=== PATIENT | female | born 1980 | race African-American/Black ===

== ENCOUNTER 2019-04-09 08:00 | Inpatient (IN) | payer OTHER ==
[2019-04-03 14:10] VITALS: BMI 36.3
[2019-04-09] MEDS ORDERED: TRANEXAMIC ACID 1000 MG/10 ML VIAL IVPUSH ONE (09:58)
[2019-04-09] MEDS ORDERED: VANCOMYCIN 1,000 MG in DEXTROSE 5%-WATER - 250 ML IVPB ONE (09:58)
[2019-04-09] MEDS ORDERED: CEFAZOLIN 2 GM in DEXTROSE 5%-WATER - 50 ML IVPB ONE (09:58)
[2019-04-09] MEDS ORDERED: ROPIVACAINE HCL 0.5% 30ML VIAL ONE (13:02)
[2019-04-09] MEDS ORDERED: EPINEPHrine/PF 1 MG/1 ML (1:1,000) AMPULE ONE (13:02)
[2019-04-09] MEDS ORDERED: MIDAZOLAM HCL 2 MG/2 ML SINGLE DOSE VIAL ONE ×3 (13:02→14:52)
[2019-04-09] MEDS ORDERED: BUPIVACAINE HCL/PF 0.5% (5MG/ML) 10 ML VIAL ONE (13:30)
[2019-04-09] MEDS ORDERED: PROPOFOL 20 ML ONE ×6 (13:53→17:53)
[2019-04-09] MEDS ORDERED: TRANEXAMIC ACID 1000 MG/10 ML VIAL ONE ×2 (14:38→18:05)
[2019-04-09] MEDS ORDERED: ceFAZolin SODIUM 1 GM VIAL ONE ×3 (14:38→18:09)
[2019-04-09] MEDS ORDERED: VANCOMYCIN 1,000 MG VIAL (RESTRICTED TO ID ONLY) ONE (14:38)
[2019-04-09] MEDS ORDERED: ONDANSETRON 4 MG/2 ML VIAL ONE ×2 (14:38→15:57)
[2019-04-09] MEDS ORDERED: KETOROLAC TROMETHAMINE 30 MG/1 ML VIAL ONE ×2 (15:57→15:58)
[2019-04-09] MEDS ORDERED: DEXAMETHASONE SOD PHOSPHATE 4 MG/1 ML VIAL ONE (15:57)
[2019-04-09] MEDS ORDERED: ONDANSETRON 4 MG/2 ML VIAL IVPUSH PRN ×3 (17:36→21:27)
[2019-04-09] MEDS ORDERED: oxyCODONE HCL 5 MG TABLET PO PRN (17:36)
[2019-04-09] MEDS ORDERED: ACETAMINOPHEN 1000 MG/100 ML VIAL (NON FORMULARY) IVPB ONE (17:36)
[2019-04-09] MEDS ORDERED: LACTATED RINGERS SOLUTION 1,000 ML IV SCH ×2 (17:45→18:30)
[2019-04-09] MEDS ORDERED: ACETAMINOPHEN INJECTION 100 ML IVPB ONE (18:06)
[2019-04-09] MEDS ORDERED: MAG HYDROX/AL HYDROX/SIMETH 30 ML UNIT-DOSE CUP PO PRN (18:16)
[2019-04-09] MEDS ORDERED: MAGNESIUM HYDROX 2400MG/30ML ORAL SUSPENSION 30 ML CUP PO PRN (18:16)
[2019-04-09] MEDS: oxyCODONE HCL 5 MG TABLET PO PRN (20:46)
--- NOTE | 2019-04-09 20:54 | CONSULT ---
Consult Referred by:: Dr. Reza Ahumada Reason for Consultation:: Post OP medical management - History of Present Illness Chief Complaint: S/P Left Hip THR History of Present Illness: 39 yrs old morbid obesity s/p Gastric Sleeve surgery in 2013 F H/O Hypothyroidism, AMY, GERD , Left Hip OA underwent Left THR under N Block, Hospitalist consult is called for post op management, patient denies any chest pain , SOB, Palpitation, no c/o nausea, vomiting or abdominal pain, c/o left hip pain able to pass flatus. - History Source History Provided By: Patient - Past Medical History ...LMP: 03/05/19 ...: No Heme/Onc: Yes: Anemia Endocrine: Yes: Hyperthyroidism - Alcohol/Substance Use Hx Alcohol Use: No - Smoking History Smoking history: Former smoker Have you smoked in the past 12 months: Yes Aproximately how many cigarettes per day: 11 If you are a former smoker, when did you quit?: 03/31/19 Home Medications - Allergies Allergies/Adverse Reactions: Allergies Allergy/AdvReac Type Severity Reaction Status Date / Time ciprofloxacin Allergy Severe HEART Verified 04/03/19 13:52 RACES AND CAN'T BREATH naproxen Allergy Severe SEVERE Verified 04/03/19 13:53 DIZZY SPELLS AND DIARRHEA - Home Medications Home Medications: Ambulatory Orders Ferrous Sulfate [Iron] 325 mg PO DAILY 04/03/19 Folic Acid 1 mg PO DAILY 04/03/19 Hydrocodone/Acetaminophen [Hydrocodon-Acetaminoph 7.5-325] 1 each PO BID Levothyroxine [Synthroid -] 150 mcg PO HS 04/03/19 Omeprazole 20 mg PO BID 04/03/19 Family Disease History - Family Disease History Family History: Unremarkable Review of Systems - Review of Systems Constitutional: denies: Chills, Diaphoresis, Fever, Lethargy, Loss of Appetite Eyes: denies: Blind Spots, Blurred Vision, Double Vision HENT: denies: Difficult Swallowing, Ear Discharge, Ear Pain, Epistaxis Neck: denies: Decreased ROM, Lumps, Pain on Movement, Stiffness Cardiovascular: denies: Chest Pain, Edema, Palpitations, Shortness of Breath Respiratory: denies: Cough, Exercise Intolerance, Hemoptysis, Orthopnea Gastrointestinal: denies: Abdominal Pain, Bloating, Constipation, Diarrhea Genitourinary: denies: Burning, Discharge, Incontinence Musculoskeletal: reports: Back Pain Neurological: denies: Change in LOC, Change in Speech, Confusion, Dizziness Pain Intensity: 8 Physical Exam Vital Signs: Vital Signs Temperature 98.1 F 04/09/19 20:10 Pulse Rate 64 04/09/19 20:10 Respiratory Rate 16 04/09/19 20:10 Blood Pressure 105/64 04/09/19 20:10 O2 Sat by Pulse Oximetry (%) 100 04/09/19 20:00 Young F not in distress c/o Left Hip Pain HEENT: Mm moist, no anemia, PERRLA EOMI NECK: No JVd No Bruit CHEST: CTA B/L CVS: s1S2 R no m/g/r ABD: No distention, non tender BS + EXT: Left LE s/p THR, distal pulses and sensation intact [employer] SECOND OPERATOR: AOX3 non focal Labs: PRE OP Lab reviewed Hb 10.3 Plat 290 k 03/19/19 Imaging - Results EKG: Report Reviewed ([id number],[id number], non specific ST T chnages 03/17/19) Problem List - Problems (1) History of arthroplasty of left hip Assessment/Plan: H/O sever OA , pain control, post Op management as per Ortho team. Code(s): Z98.890 - OTHER SPECIFIED POSTPROCEDURAL STATES (2) Hypothyroid Assessment/Plan: Cont Home dose of Levothyroidism Code(s): E03.9 - HYPOTHYROIDISM, UNSPECIFIED (3) AMY (iron deficiency anemia) Assessment/Plan: Cont PO Iron Code(s): D50.9 - IRON DEFICIENCY ANEMIA, UNSPECIFIED (4) Obesity Assessment/Plan: Morbid obesity s/p Gastric sleeve surgery in 2013 cont nutrition evaluation as out patient. Code(s): E66.9 - OBESITY, UNSPECIFIED Visit type - Emergency Visit Emergency Visit: No - New Patient This patient is new to me today: Yes Date on this admission: 04/09/19 - Critical Care Critical Care patient: No
[2019-04-09] MEDS ORDERED: ACETAMINOPHEN 325 MG TABLET (FP) PO PRN (21:02)
[2019-04-09] MEDS ORDERED: HYDROmorphone HCL CARPU-JECT 1 MG/1 ML DISP.SYRIN IVPB PRN (21:27)
[2019-04-09] MEDS ORDERED: KETOROLAC TROMETHAMINE 30 MG/1 ML VIAL IVPUSH ONE (21:51)
[2019-04-09] MEDS ORDERED: ASPIRIN 325 MG TABLET PO SCH (22:00)
[2019-04-09] MEDS ORDERED: PATIENT'S OWN MEDICATION (NON-FORMULARY) (Omeprazole 20 MG) PO SCH (22:00)
--- NOTE | 2019-04-09 22:02 | PN ---
Progress Note (short form) - Note Progress Note: 39F s/p LEFT total hip replacement POD #0. -Pain control: per anaesthesia team. -DVT PPx: -Chemical: ASA 81mg PO BID x 6 weeks. -Mechanical: DEO's, SCD's. -Incentive spirometry q15 min. -PT/OT/Rehab, OOB. -WBAT LLE. -Post-op Ancef x 2 doses. -f/u post-op TOV: 8 hours max. -f/u AM labs. -Diet as tolerated. -Care per medical hospitalist team. -Discharge planning: f/u [facility] [place] [facility] 04/17/2019; call for appointment . -Will follow. Brandyn Cobb MD (Orthopaedic Surgery).
--- NOTE | 2019-04-09 22:04 | OP ---
Operative Note - Note: Operative Date: 04/09/19 Pre-Operative Diagnosis: Left hip dysplasia (previous SCFE) and osteoarthritis Operation: Left total hip replacement. Removal of hardware left hip Implants: DePuy. Cup - [place]. Stem - SROM Post-Operative Diagnosis: Same as Pre-op Surgeon: Brandyn Cobb Guest Service Representative: Peter Cobb Anesthesiologist/HORSE FARM MANAGER: Hasmukh Tyler Anesthesia: Spinal Specimens Removed: Left femoral head. Left hip hardware Estimated Blood Loss (mls): 500 Drains & Tubes with Location: 1 x deep HemoVac Fluid Volume Replaced (mls): 1,500 (Crystalloid) Operative Report Dictated: Yes
[2019-04-09] MEDS: oxyCODONE HCL 10 MG SUSTAINED ACTING TABLET PO SCH (22:40)
[2019-04-09] MEDS: SENNOSIDES/DOCUSATE COMBO (SENNA PLUS) TABLET (UD) PO SCH (22:40)
[2019-04-09] MEDS: ASPIRIN 81 MG CHEWABLE TABLETS PO SCH (22:40)
[2019-04-10] MEDS: oxyCODONE HCL 5 MG TABLET PO PRN ×7 (00:23→20:34)
[2019-04-10] MEDS: CEFAZOLIN 2 GM/D5W 2 GM/50 ML ML IVPB SCH ×2 (01:46→10:15)
[2019-04-10] MEDS: LEVOTHYROXINE NA 150 MCG TABLET PO SCH (06:25)
--- NOTE | 2019-04-10 07:45 | OP ---
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 In fact, feet pointed posteriorly because of this deformity. All surgeons she saw declined offering her any help. OPERATION PERFORMED: 1. Left cementless total hip arthroplasty (DePuy S-ROM). 2. Open tenotomy of obturator internus, obturator externus, gemellus superior, gemellus inferior, and piriformis muscles, that is, 5 tendons released. 3. Appropriate capsulotomy and capsulorrhaphy. 4. Complex wound closure of 30 cm. OVERALL COMMENT: Extremely difficult and complex operation. ANESTHESIA: Conscious sedation with spinal anesthesia. ANTIBIOTICS GIVEN: Kefzol and vancomycin preoperatively. Intraoperative at the time of seating of the femoral component, 1 g of Kefzol given. At the time of closure, 1 g of Kefzol given. BLOOD LOSS: Approximately 500 mL OPERATION DETAILS: In the supine position, the patient was examined, found the following: At 90 degrees of flexion, the tibia extremely rotated at 45 degrees and was fixed in this position. In the supine position, the limb lay with the foot parallel to the floor and flexing the hip slightly, the foot faced backwards. The preoperative x-rays revealed no slipped capital epiphysis. After the appropriate draping with Betadine scrub solution, wiped with alcohol, and DuraPrep applied, and after having sealed the wound with the appropriate dressing devices, an incision was made at the center of the greater trochanter approximately 5 cm proximal to the trochanter and 25 cm distal to the greater trochanter. Charnley retractors were placed in the subfascial plane to expose the hip abductor mechanism. The gluteus medius muscle was vertical in the supine position, which was grossly abnormal. Using an anterior bias direct lateral approach, the anterior soft tissues of the femoral neck were dissected off the steel screw of the old slipped capital epiphysis, and attempts at removing the screw impossible. It was cold-welded into position. A superolateral inferomedial capsulotomy performed. Radial incision was made in the capsule, brought about an exposure of the entire femoral and neck and head. It was noted clearly that the femoral neck was retroverted approximately 15 to 20 degrees, and gross osteoarthritis of the head articulation with the acetabulum was noted. With an induction external rotation maneuver with great difficulty, the femoral head was dislocated. The transfemoral neck cut was made at the level just proximal to the lesser trochanter. The anterior, posterior, inferior retractors were seated and Charnley pins were placed superolaterally in the ileum to hold the soft tissues out of harms way. The labrum was resected. The reaming was to size 48 and size 50. [employer] multi-hole cup inserted to ultimately receive a polyethylene for a 28-mm articulation, and a 10-degree posterior lip liner. This was a cup that also had a +4 mm lateral offset. The femur was exposed. The rotating awl was inserted into the tip of the greater trochanter. The T-handle Charnley was placed into medullary canal with no difficulty. Reaming for an S-ROM stem was then up to size 15.5 anticipating a size 15-mm stem. Trialing of the components posed difficulty of this operation in terms of achieving leg length. The neck shaft angle was 90 degrees, and in order to achieve and seat a hip at 135-degree neck shaft angle, that meant using the concepts of [place] of 1 degree equals 1 mm, 4.5 cm of lengthening would be necessary. Repeat trialings after the neck cuts and seating of the S-ROM stem which was a combination of reaming as well as the proximal milling of the bone bed resulted in the need for doing this on sequential multiple times because of the difficulty of assessing the appropriate tension of tissues and leg length as well as relocation of the implant into the socket. Eventually, a liberal amount of bone was resected. The appropriate sizing was a size 15 S-ROM stem with a D small SPA, these all having been sized and seated with the appropriate cutting devices of the S-ROM stem, that is , the proximal reamer as was the appropriate proximal calcar milling device. The external rotators were all released in an open fashion. This was done with no harm to the sciatic nerve. Each tendon was identified and transected to achieve realignment of the axis of the femur away from external rotation. The size +4 ceramic femoral head was applied to the trunnion. The hip was seated into position and found to be completely stable in flexion adduction internal rotation, as well as extension external rotation. Leg length appeared equal. The wounds were thoroughly lavaged. Once this had been performed, the appropriate closure was as follows. Hip adductor fascia with 1 Vicryl, fascia 1 Vicryl, subcutaneous a layer with 1-0 Vicryl and the other layer with 2-0 Vicryl, and then, skin with Monocryl and Steri-Strips. This was a complex wound closure of approximately 25 cm. Drainage 0.125-inch Hemovac into the deep subfascial plane. OVERALL COMMENT: This proved to be an extremely difficult procedure in order to achieve correct axial alignment, which was successfully done by the end, and leg length remained equal, and after anesthesia was reversed, sciatic nerve was fully intact. Postoperative x-rays revealed an excellent reconstruction of the entire components. The hip is stable. A hip abduction pillow was placed. An appropriate hip brace will be applied, and a derotation boot to prevent the limb falling to external rotation particularly during sleep to maintain axial alignment of this hip. Overall comment was an extremely difficult operation. No other complications noted. MD LI Amaro/[id number] MTDD
[2019-04-10] MEDS: diazePAM 2 MG TABLET PO PRN ×2 (08:02→16:20)
[2019-04-10 08:35] LABS: BASO % 0.2 % (0-2.0); EOS % 0.1 % (0-4.5); HEMATOCRIT 24.9 % (32.4-45.2); HEMOGLOBIN 7.8 GM/dl (10.7-15.3); LYMPH % 12.5 % (8-40); MCH 23.4 pg (25.7-33.7); MCHC 31.5 g/dl (32.0-36.0); MEAN CELL VOLUME 74.1 fl (80-96); MEAN PLT VOLUME 9.1 fl (7.5-11.1); MONO % 9.1 % (3.8-10.2); NEUT % 78.1 % (42.8-82.8); PLATELET COUNT 289 K/MM3 (134-434); RBC 3.36 M/mm3 (3.60-5.2); RDW 26.7 % (11.6-15.6); WHITE BLOOD COUNT 12.5 K/mm3 (4.0-10.8)
[2019-04-10 08:45] LABS: CALCIUM 8.3 mg/dl (8.5-10); CREATININE 0.9 mg/dl (0.55-1.3); MAGNESIUM 1.8 mg/dL (1.8-2.4); POTASSIUM 4.4 mmol/L (3.5-5.1)
[2019-04-10 08:52] LABS: ADD RBC MORPHOLOGY YES
[2019-04-10] MEDS: FERROUS SO4 325 MG TABLET (FP) PO SCH (09:24)
[2019-04-10] MEDS: ASPIRIN 81 MG CHEWABLE TABLETS PO SCH ×2 (09:24→21:50)
[2019-04-10] MEDS: FOLIC ACID 1 MG TABLET (FP) PO SCH (09:25)
[2019-04-10] MEDS: oxyCODONE HCL 10 MG SUSTAINED ACTING TABLET PO SCH ×2 (09:25→21:50)
[2019-04-10] MEDS: SENNOSIDES/DOCUSATE COMBO (SENNA PLUS) TABLET (UD) PO SCH ×2 (09:26→21:50)
--- NOTE | 2019-04-10 09:58 | PN ---
Progress Note (short form) - Note Progress Note: POD#1 Pt states that she is having pain in her left hip. OOB to chair this am. Slight nausea without emesis. No CP or SOB. Voiding without difficulty. Vital Signs Period Temp Pulse Resp BP Sys/Franks Pulse Ox Last 24 Hr 98.1 F-98.4 F 64-86 16-18 90-111/44-85 100-100 GEN: A&0x3 CV: RRR Lungs: CTA b/l Left hip: dressing c/d/i, area soft. REILLY dark brown blood-265 ml LE: +2 dp pulses, calves soft and without edema. PETERSON/SCDS in place. Abductor pillow in place. CBC, BMP 05/16/19 07:10 05/16/19 07:10 A/p: 39 yo female s/p L hip replacement and removal of hardware, POD#1 OOB to chair and ambulate with PT/posterior hip precautions Pain management, added toradol IV and valium as needed Regular diet as tolerated DVT ppx with ambulation, peterson/scds, aspirin 81 mg bid D/w Dr. Cobb
[2019-04-10] MEDS ORDERED: PATIENT'S OWN MEDICATION (NON-FORMULARY) (Ferrous Sulfate [Iron] 325 MG) PO SCH (10:00)
[2019-04-10] MEDS ORDERED: PANTOPRAZOLE 40 MG TABLET (FP) PO SCH (10:00)
[2019-04-10 10:04] LABS: ANISOCYTOSIS 2+; OVALOCYTE 2+
[2019-04-10 10:05] LABS: PLATELET ESTIMATE SLT INCREASE
[2019-04-10] MEDS: ACETAMINOPHEN 325 MG TABLET (FP) PO SCH ×2 (13:10→20:35)
[2019-04-10] MEDS: KETOROLAC TROMETHAMINE 30 MG/1 ML VIAL IVPUSH PRN ×2 (15:10→21:51)
--- NOTE | 2019-04-10 16:44 | PN ---
Progress Note (short form) - Note Progress Note: 39F POD1 s/p L THR under spinal anesthetic with peripheral nerve block. Pt states that pain is well controlled and reports no anesthetic complications. AVSS. Continue current regimen.
[2019-04-10] MEDS ORDERED: SUCRALFATE 1 GM TABLET (FP) PO STA (17:25)
[2019-04-10] MEDS ORDERED: oxyCODONE HCL 5 MG TABLET PO PRN (17:27)
--- NOTE | 2019-04-10 17:29 | PN ---
Physical Exam: SUBJECTIVE: Patient seen and examined. Feeling tired. Feels she might be taking too much pain medication. OBJECTIVE: Vital Signs Period Temp Pulse Resp BP Sys/Franks Pulse Ox Last 24 Hr 98.1 F-98.4 F 64-86 16-18 90-111/44-85 97-100 GENERAL: The patient is awake, alert, and fully oriented, in no acute distress. Nodding off to sleep while talking. LUNGS: Breath sounds equal, clear to auscultation bilaterally, no wheezes, no crackles, no accessory muscle use. HEART: Regular rate and rhythm, S1, S2 without murmur, rub or gallop. ABDOMEN: Soft, nontender, nondistended LLE: Surgical dressing c/d/i, no surrounding edema, erythema, fluctuance; SCDs NEUROLOGICAL: Cranial nerves II through XII grossly intact. Normal speech, gait not observed. Laboratory Results - last 24 hr 04/09/19 04/10/19 04/10/19 13:15 07:10 07:10 WBC 12.5 H RBC 3.36 L Hgb 7.8 L Hct 24.9 L MCV 74.1 L MCH 23.4 L MCHC 31.5 L RDW 26.7 H Plt Count 289 MPV 9.1 Absolute Neuts (auto) 9.8 Neutrophils % 78.1 Lymphocytes % 12.5 Monocytes % 9.1 Eosinophils % 0.1 Basophils % 0.2 Hypochromia 1+ Platelet Estimate Slt increase Poikilocytosis 2+ Anisocytosis 2+ Ovalocytes 2+ Morphology Comment 1+ Sodium 136 Potassium 4.4 Chloride 105 Carbon Dioxide 23 Anion Gap 8 BUN 11 Creatinine 0.9 Est GFR (CKD-EPI)AfAm 92.70 Est GFR (CKD-EPI)NonAf 79.98 Random Glucose 139 H Calcium 8.3 L Magnesium 1.8 HIV 1&2 Antibody Screen Negative HIV P24 Antigen Negative Active Medications Generic Name Dose Route Start Last Admin Trade Name Freq PRN Reason Stop Dose Admin Acetaminophen 650 mg 04/10/19 13:00 04/10/19 13:10 Tylenol - PO 650 mg Q6H MAYLIN Administration Al Hydroxide/Mg Hydroxide 30 ml 04/09/19 18:16 Mylanta Oral Suspension - PO Q4H PRN DYSPEPSIA Aspirin 81 mg 04/09/19 22:00 04/10/19 09:24 Asa - PO 81 mg BID MAYLIN Administration Diazepam 2 mg 04/10/19 07:24 04/10/19 16:20 Valium - PO 2 mg Q8H PRN Administration MUSCLE SPASMS Ferrous Sulfate 325 mg 04/10/19 10:00 04/10/19 09:24 Feosol - PO 325 mg DAILY MAYLIN Administration Folic Acid 1 mg 04/10/19 10:00 04/10/19 09:25 Folic Acid - PO 1 mg DAILY MAYLIN Administration Ketorolac Tromethamine 30 mg 04/10/19 08:26 04/10/19 15:10 Toradol Injection - IVPUSH 30 mg Q8H-IV PRN Administration PAIN LEVEL 1-5 Levothyroxine Sodium 150 mcg 04/10/19 07:00 04/10/19 06:25 Synthroid - PO 150 mcg ACBK [facility] Administration Magnesium Hydroxide 30 ml 04/09/19 18:16 Milk Of Magnesia - PO PRN PRN CONSTIPATION Non-Formulary Medication 1 each 04/09/19 22:00 Hydrocodone/Acetaminophen [Hydrocodone-Acetamin 7.5-325] PO BID [facility] Ondansetron HCl 4 mg 04/09/19 18:16 Zofran Injection IVPUSH Q6H PRN NAUSEA Oxycodone HCl 10 mg 04/09/19 22:00 04/10/19 09:25 Oxycontin - PO 04/12/19 17:37 10 mg BID MAYLIN Administration Oxycodone HCl 5 mg 04/10/19 17:27 Roxicodone - PO Q6H PRN PAIN LEVEL 1-5 Oxycodone HCl 10 mg 04/10/19 17:28 Roxicodone - PO Q6H PRN PAIN LEVEL 6-10 Pantoprazole Sodium 20 mg 04/11/19 10:00 Protonix - PO BID [facility] Senna/Docusate Sodium 1 tablet 04/09/19 22:00 04/10/19 09:26 Pericolace - PO 1 tablet BID [facility] Administration Sucralfate 1 gm 04/10/19 17:25 Carafate - PO 04/10/19 17:26 ONCE STA ASSESSMENT/PLAN 39 year-old female with a PMH significant for hypothyroidism, obesity s/p gastric sleeve surgery, iron-deficiency anemia, GERD, left hip dysplasia and OA s/p left total hip replacement on 04/09/19. s/p Left total hip replacement and removal of hardware --POD #1 --perioperative antibiotics per surgery --pain management per surgery; changed dosing from q3h to q6h to avoid oversedation --ASA 81mg BID --protonix --bowel regimen --incentive spirometry --Hemovac drain, monitor output Acute blood loss anemia --Hgb 7.4, pre op 10.3; transfuse 2U PRBC Hypothyroidism --continue levothyroxine GERD --continue protonix FEN Fluids: PO intake adequate Electrolytes: replete as indicated Nutrition: regular diet DVT prophylaxis: OOB, ambulation, SCDs, TEDs, ASA 81mg BID Physical therapy Dispo: continues to require inpatient care. Full code. Visit type - Emergency Visit Emergency Visit: No - New Patient This patient is new to me today: Yes Date on this admission: 04/11/19 - Critical Care Critical Care patient: No
[2019-04-10 18:16] LABS: HEMATOCRIT 23.4 % (32.4-45.2); HEMOGLOBIN 7.4 GM/dl (10.7-15.3); MCH 23.6 pg (25.7-33.7); MCHC 31.5 g/dl (32.0-36.0); MEAN CELL VOLUME 74.9 fl (80-96); MEAN PLT VOLUME 8.5 fl (7.5-11.1); PLATELET COUNT 235 K/MM3 (134-434); RBC 3.12 M/mm3 (3.60-5.2); RDW 26.8 % (11.6-15.6)
[2019-04-10 18:19] LABS: WHITE BLOOD COUNT 10.9 K/mm3 (4.0-10.8)
[2019-04-10] MEDS ORDERED: FUROSEMIDE 40 MG/4 ML INJECTABLE VIAL IVPUSH ONE (23:00)
[2019-04-11] MEDS: diazePAM 2 MG TABLET PO PRN ×2 (02:40→14:29)
[2019-04-11] MEDS: ACETAMINOPHEN 325 MG TABLET (FP) PO SCH ×4 (02:41→18:13)
[2019-04-11] MEDS ORDERED: FUROSEMIDE 40 MG/4 ML INJECTABLE VIAL ONE (05:54)
[2019-04-11] MEDS: LEVOTHYROXINE NA 150 MCG TABLET PO SCH (06:01)
[2019-04-11] MEDS: oxyCODONE HCL 5 MG TABLET PO PRN ×2 (08:31→14:28)
--- NOTE | 2019-04-11 09:19 | PN ---
Progress Note (short form) - Note Progress Note: POD#2 PT received 1 unit PRBC yesterday and another to be given this am. Sight dizziness with ambulation. No CP or SOB. Vital Signs Period Temp Pulse Resp BP Sys/Franks Pulse Ox Last 24 Hr 98.2 F-98.8 F 72-96 16-18 100-113/47-54 97-100 Hemovac: 265 since yesterday- blood tinged GEN: A&0x3, NAD, resting in bed CV: RRR Lungs: CTA b/l Left hip: dressing c/d/I. Soft to palpation. LE: no calf tenderness or swelling noted b/l CBC, BMP 05/16/19 17:59 05/16/19 07:10 A/P: 39 yo female s/p Left hip hardware removal and hip replacement, POD#2. Acute blood lose anemia requiring PRBC transfusion Pt receiving PRBC this am, continue folic acid and Iron Diet as tolerated OOB and ambulate with PT, stair training this am. D/w PT, pt has stairs to her appartment Will continue her drain for now, the amount is decreasing D/w DR. Cobb discharge pending PT reassessment and drain outpt/H&H
[2019-04-11] MEDS: SENNOSIDES/DOCUSATE COMBO (SENNA PLUS) TABLET (UD) PO SCH ×2 (09:37→21:45)
[2019-04-11] MEDS: ASPIRIN 81 MG CHEWABLE TABLETS PO SCH ×2 (09:37→21:45)
[2019-04-11] MEDS: FERROUS SO4 325 MG TABLET (FP) PO SCH (09:37)
[2019-04-11] MEDS: oxyCODONE HCL 10 MG SUSTAINED ACTING TABLET PO SCH ×2 (09:37→21:46)
[2019-04-11] MEDS: PANTOPRAZOLE 20 MG TABLET (FP) PO SCH ×2 (09:38→21:45)
[2019-04-11] MEDS: FOLIC ACID 1 MG TABLET (FP) PO SCH (09:38)
[2019-04-11 12:02] LABS: HEMATOCRIT 28.7 % (32.4-45.2); HEMOGLOBIN 9.1 GM/dl (10.7-15.3); MCH 24.5 pg (25.7-33.7); MCHC 31.8 g/dl (32.0-36.0); MEAN PLT VOLUME 8.3 fl (7.5-11.1); PLATELET COUNT 232 K/MM3 (134-434); RBC 3.72 M/mm3 (3.60-5.2); WHITE BLOOD COUNT 11.1 K/mm3 (4.0-10.8)
--- NOTE | 2019-04-11 17:44 | PN ---
Physical Exam: SUBJECTIVE: Patient seen and examined oob to chair. Pain is well-managed. Less fatigued. Participating in PT. OBJECTIVE: Vital Signs Period Temp Pulse Resp BP Sys/Franks Pulse Ox Last 24 Hr 98.2 F-99.2 F 72-96 18-18 108-120/50-60 98-99 GENERAL: The patient is awake, alert, and fully oriented, in no acute distress. LUNGS: Breath sounds equal, clear to auscultation bilaterally, no wheezes, no crackles, no accessory muscle use. HEART: Regular rate and rhythm, S1, S2 without murmur, rub or gallop. ABDOMEN: Soft, nontender, nondistended LLE: Surgical dressing c/d/i, no surrounding edema, erythema, fluctuance; SCDs NEUROLOGICAL: Cranial nerves II through XII grossly intact. Normal speech, gait not observed. Laboratory Results - last 24 hr 04/10/19 04/10/19 04/10/19 17:59 21:15 21:15 WBC 10.9 H RBC 3.12 L Hgb 7.4 L Hct 23.4 L MCV 74.9 L MCH 23.6 L MCHC 31.5 L RDW 26.8 H Plt Count 235 MPV 8.5 Blood Type O POSITIVE O POSITIVE Antibody Screen Positive Antibody Identification Anti-e Antigen Identification E Antigen - NEGATIVE Crossmatch See Detail 04/11/19 04/11/19 00:11 12:00 WBC 11.1 H RBC 3.72 Hgb 9.1 L Hct 28.7 L D MCV 77.0 L MCH 24.5 L MCHC 31.8 L RDW 24.0 H D Plt Count 232 MPV 8.3 Blood Type Antibody Screen Antibody Identification Antigen Identification c Antigen - POSITIVE Crossmatch Active Medications Generic Name Dose Route Start Last Admin Trade Name Freq PRN Reason Stop Dose Admin Acetaminophen 650 mg 04/10/19 13:00 04/11/19 12:20 Tylenol - PO 650 mg Q6H MAYLIN Administration Al Hydroxide/Mg Hydroxide 30 ml 04/09/19 18:16 Mylanta Oral Suspension - PO Q4H PRN DYSPEPSIA Aspirin 81 mg 04/09/19 22:00 04/11/19 09:37 Asa - PO 81 mg BID MAYLIN Administration Diazepam 2 mg 04/10/19 07:24 04/11/19 14:29 Valium - PO 2 mg Q8H PRN Administration MUSCLE SPASMS Ferrous Sulfate 325 mg 04/10/19 10:00 04/11/19 09:37 Feosol - PO 325 mg DAILY MAYLIN Administration Folic Acid 1 mg 04/10/19 10:00 04/11/19 09:38 Folic Acid - PO 1 mg DAILY MAYLIN Administration Ketorolac Tromethamine 30 mg 04/10/19 08:26 04/10/19 21:51 Toradol Injection - IVPUSH 30 mg Q8H-IV PRN Administration PAIN LEVEL 1-5 Levothyroxine Sodium 150 mcg 04/10/19 07:00 04/11/19 06:01 Synthroid - PO 150 mcg ACBK MAYLIN Administration Magnesium Hydroxide 30 ml 04/09/19 18:16 Milk Of Magnesia - PO PRN PRN CONSTIPATION Non-Formulary Medication 1 each 04/09/19 22:00 Hydrocodone/Acetaminophen [Hydrocodone-Acetamin 7.5-325] PO BID [facility] Ondansetron HCl 4 mg 04/09/19 18:16 Zofran Injection IVPUSH Q6H PRN NAUSEA Oxycodone HCl 10 mg 04/09/19 22:00 04/11/19 09:37 Oxycontin - PO 04/12/19 17:37 10 mg BID MAYLIN Administration Oxycodone HCl 5 mg 04/10/19 17:27 Roxicodone - PO Q6H PRN PAIN LEVEL 1-5 Oxycodone HCl 10 mg 04/10/19 17:28 04/11/19 14:28 Roxicodone - PO 10 mg Q6H PRN Administration PAIN LEVEL 6-10 Pantoprazole Sodium 20 mg 04/11/19 10:00 04/11/19 09:38 Protonix - PO 20 mg BID [facility] Administration Senna/Docusate Sodium 1 tablet 04/09/19 22:00 04/11/19 09:37 Pericolace - PO 1 tablet BID [facility] Administration ASSESSMENT/PLAN: 39 year-old female with a PMH significant for hypothyroidism, obesity s/p gastric sleeve surgery, iron-deficiency anemia, GERD, left hip dysplasia and OA s/p left total hip replacement on 04/09/19. s/p Left total hip replacement and removal of hardware --POD #2 --perioperative antibiotics per surgery --pain management per surgery; changed dosing from q3h to q6h to avoid oversedation --ASA 81mg BID --protonix --bowel regimen --incentive spirometry --Hemovac drain, monitor output Acute blood loss anemia --transfused 2U PRBC, Hgb improved 7.4-->9.1 --hemodynamically stable Hypothyroidism --continue levothyroxine GERD --continue protonix FEN Fluids: PO intake adequate Electrolytes: replete as indicated Nutrition: regular diet DVT prophylaxis: OOB, ambulation, SCDs, TEDs, ASA 81mg BID Physical therapy Dispo: continues to require inpatient care. Full code. Visit type - Emergency Visit Emergency Visit: No - New Patient This patient is new to me today: No - Critical Care Critical Care patient: No
[2019-04-11] MEDS: KETOROLAC TROMETHAMINE 30 MG/1 ML VIAL IVPUSH PRN (18:12)
[2019-04-12] MEDS: diazePAM 2 MG TABLET PO PRN ×3 (01:00→19:35)
[2019-04-12] MEDS: ACETAMINOPHEN 325 MG TABLET (FP) PO SCH ×4 (02:44→19:34)
[2019-04-12] MEDS: oxyCODONE HCL 5 MG TABLET PO PRN ×2 (04:05→12:58)
[2019-04-12] MEDS: LEVOTHYROXINE NA 150 MCG TABLET PO SCH (06:14)
--- NOTE | 2019-04-12 09:38 | PN ---
Progress Note (short form) - Note Progress Note: POD#3 Doing well C/O incisional pain. Vitals and Bloods all stable HIP Bandage dry No NVD Alignment well maintained No signs of DVT ASSESS Doing well PLAN D/c tomorrow PT [employer] FWBAT Hip precautions see in office 10days
[2019-04-12] MEDS: oxyCODONE HCL 10 MG SUSTAINED ACTING TABLET PO SCH (10:54)
[2019-04-12] MEDS: SENNOSIDES/DOCUSATE COMBO (SENNA PLUS) TABLET (UD) PO SCH ×2 (10:54→21:51)
[2019-04-12] MEDS: ASPIRIN 81 MG CHEWABLE TABLETS PO SCH ×2 (10:54→21:51)
[2019-04-12] MEDS: FOLIC ACID 1 MG TABLET (FP) PO SCH (10:54)
[2019-04-12] MEDS: FERROUS SO4 325 MG TABLET (FP) PO SCH (10:54)
[2019-04-12] MEDS: PANTOPRAZOLE 20 MG TABLET (FP) PO SCH ×2 (10:55→21:51)
--- NOTE | 2019-04-12 13:20 | PN ---
Physical Exam: SUBJECTIVE: Patient seen and examined oob to chair. Worked with PT today. OBJECTIVE: Vital Signs Period Temp Pulse Resp BP Sys/Franks Pulse Ox Last 24 Hr 98.1 F-99.2 F 78-118 16-19 102-118/46-57 97-100 GENERAL: The patient is awake, alert, and fully oriented, in no acute distress. LUNGS: Breath sounds equal, clear to auscultation bilaterally, no wheezes, no crackles, no accessory muscle use. HEART: Regular rate and rhythm, S1, S2 without murmur, rub or gallop. ABDOMEN: Soft, nontender, nondistended LLE: Surgical dressing c/d/i, no surrounding edema, erythema, fluctuance; SCDs NEUROLOGICAL: Cranial nerves II through XII grossly intact. Normal speech, gait not observed. Active Medications Generic Name Dose Route Start Last Admin Trade Name Freq PRN Reason Stop Dose Admin Acetaminophen 650 mg 04/10/19 13:00 04/12/19 12:58 Tylenol - PO 650 mg Q6H MAYLIN Administration Al Hydroxide/Mg Hydroxide 30 ml 04/09/19 18:16 Mylanta Oral Suspension - PO Q4H PRN DYSPEPSIA Aspirin 81 mg 04/09/19 22:00 04/12/19 10:54 Asa - PO 81 mg BID MAYLIN Administration Diazepam 2 mg 04/10/19 07:24 04/12/19 12:58 Valium - PO 2 mg Q8H PRN Administration MUSCLE SPASMS Ferrous Sulfate 325 mg 04/10/19 10:00 04/12/19 10:54 Feosol - PO 325 mg DAILY MAYLIN Administration Folic Acid 1 mg 04/10/19 10:00 04/12/19 10:54 Folic Acid - PO 1 mg DAILY MAYLIN Administration Levothyroxine Sodium 150 mcg 04/10/19 07:00 04/12/19 06:14 Synthroid - PO 150 mcg ACBK MAYLIN Administration Magnesium Hydroxide 30 ml 04/09/19 18:16 Milk Of Magnesia - PO PRN PRN CONSTIPATION Non-Formulary Medication 1 each 04/09/19 22:00 Hydrocodone/Acetaminophen [Hydrocodone-Acetamin 7.5-325] PO BID MAYLIN Ondansetron HCl 4 mg 04/09/19 18:16 Zofran Injection IVPUSH Q6H PRN NAUSEA Oxycodone HCl 10 mg 04/09/19 22:00 04/12/19 10:54 Oxycontin - PO 04/12/19 17:37 10 mg BID MAYLIN Administration Oxycodone HCl 5 mg 04/10/19 17:27 Roxicodone - PO Q6H PRN PAIN LEVEL 1-5 Oxycodone HCl 10 mg 04/10/19 17:28 04/12/19 12:58 Roxicodone - PO 10 mg Q6H PRN Administration PAIN LEVEL 6-10 Pantoprazole Sodium 20 mg 04/11/19 10:00 04/12/19 10:55 Protonix - PO 20 mg BID MAYLIN Administration Senna/Docusate Sodium 1 tablet 04/09/19 22:00 04/12/19 10:54 Pericolace - PO 1 tablet BID MAYLIN Administration ASSESSMENT/PLAN 39 year-old female with a PMH significant for hypothyroidism, obesity s/p gastric sleeve surgery, iron-deficiency anemia, GERD, left hip dysplasia and OA s/p left total hip replacement on 04/09/19. s/p Left total hip replacement and removal of hardware --POD #3 --perioperative antibiotics per surgery --pain well-managed --ASA 81mg BID --protonix --bowel regimen --incentive spirometry Acute blood loss anemia --transfused 2U PRBC on 04/10, Hgb improved 7.4-->9.1 --hemodynamically stable Hypothyroidism --continue levothyroxine GERD --continue protonix FEN Fluids: PO intake adequate Electrolytes: replete as indicated Nutrition: regular diet DVT prophylaxis: OOB, ambulation, SCDs, TEDs, ASA 81mg BID Physical therapy Dispo: continues to require inpatient care. Full code. Visit type - Emergency Visit Emergency Visit: No - New Patient This patient is new to me today: No - Critical Care Critical Care patient: No
[2019-04-13] MEDS: oxyCODONE HCL 5 MG TABLET PO PRN ×2 (00:43→09:05)
[2019-04-13] MEDS: ACETAMINOPHEN 325 MG TABLET (FP) PO SCH ×2 (00:44→06:22)
[2019-04-13] MEDS: diazePAM 2 MG TABLET PO PRN (03:06)
[2019-04-13] MEDS: LEVOTHYROXINE NA 150 MCG TABLET PO SCH (06:22)
[2019-04-13 06:30] VITALS: BP 100/57; PULSE 77; TEMP 98
[2019-04-13] MEDS: ASPIRIN 81 MG CHEWABLE TABLETS PO SCH (09:00)
[2019-04-13] MEDS: FERROUS SO4 325 MG TABLET (FP) PO SCH (09:04)
[2019-04-13] MEDS: PANTOPRAZOLE 20 MG TABLET (FP) PO SCH (09:05)
[2019-04-13] MEDS: FOLIC ACID 1 MG TABLET (FP) PO SCH (09:05)
[2019-04-13] MEDS: SENNOSIDES/DOCUSATE COMBO (SENNA PLUS) TABLET (UD) PO SCH (09:06)
--- NOTE | 2019-04-13 11:02 | DS ---
Physical Exam: SUBJECTIVE: Patient seen and examined OBJECTIVE: Vital Signs Period Temp Pulse Resp BP Sys/Franks Pulse Ox Last 24 Hr 98.0 F-98.4 F 77-102 16-20 100-114/56-74 98-100 PHYSICAL EXAM GENERAL: The patient is awake, alert, and fully oriented, in no acute distress. HEAD: Normal with no signs of trauma. EYES: PERRL, extraocular movements intact, sclera anicteric, conjunctiva clear. ENT: Ears normal, nares patent, oropharynx clear without exudates, moist mucous membranes. NECK: Trachea midline, full range of motion, supple. LUNGS: Breath sounds equal, clear to auscultation bilaterally, no wheezes, no crackles, no accessory muscle use. HEART: Regular rate and rhythm, S1, S2 without murmur, rub or gallop. ABDOMEN: Soft, nontender, nondistended, normoactive bowel sounds, no guarding, no rebound, no hepatosplenomegaly, no masses. EXTREMITIES: 2+ pulses, warm, well-perfused, no edema. NEUROLOGICAL: Cranial nerves II through XII grossly intact. Normal speech, gait not observed. PSYCH: Normal mood, normal affect. SKIN: Warm, dry, normal turgor, no rashes or lesions noted. LABS HOSPITAL COURSE: Date of Admission:04/09/19 Date of Discharge: 04/13/19 39 year-old female with a PMH significant for hypothyroidism, obesity s/p gastric sleeve surgery, iron-deficiency anemia, GERD, left hip dysplasia and OA s/p left total hip replacement on 04/09/19. s/p Left total hip replacement and removal of hardware --POD #4 --pain well-managed- hydrocodone sent to pharmacy by TALYA Quinn --ASA 81mg BID --protonix --bowel regimen --incentive spirometry -- follow up with Dr. Cobb outpt Acute blood loss anemia --transfused 2U PRBC on 04/10, Hgb improved 7.4-->9.1 --hemodynamically stable Hypothyroidism --continue levothyroxine GERD --continue protonix Minutes to complete discharge: 30 Discharge Summary Reason For Visit: BILATERAL OSTEOARTHRITIS OF HIPS Current Active Problems History of arthroplasty of left hip (Acute) Hypothyroid (Acute) AMY (iron deficiency anemia) (Acute) Obesity (Acute) Condition: Stable - Instructions Diet, Activity, Other Instructions: Dr. Cobb Discharge Instructions for Hip Replacement Post Operative Instructions Physical activity Physical Therapist will come to your home for the first 5 days. You will be set up with outpatient PT at your first post-operative visit. Use assistive devices for ambulation at all times. Weight bearing as tolerated on your surgical side. Wound care Leave your surgical dressing in place. Do not change the dressing until seen by your surgeon in the office. No baths or showers. Do not submerge your incision. Do not apply any ointments or lotions to your incision. Please call the office if your dressing is soiled/dirty or is falling off. Apply Graduated Compression Stockings (TEDS) to both lower extremities-remove daily for hygiene ONLY. Diet There are no dietary restrictions. Eat healthy, high-fiber foods. Drink 6 to 8 glasses of liquid each day. This will assist in keeping your bowels are regular. Pain management Any pain prescription medication ordered should be taken as prescribed for moderate to severe pain. Do not take additional Tylenol while taking Percocet. Posterior Hip Precautions: Do not cross the leg you had surgery on over your other leg. (Do not cross your legs.)Use an elevated toilet seat. Do not sit on low chairs or beds. Use purple pillow (abductor) when lying in bed/sleeping. Take Aspirin 81 mg two times a day for a total of 6 weeks to prevent blood clots. Call Dr. Cobb for any of the following: Severe pain not relieved by medication Fever of 101 or higher Excessive bleeding or drainage on dressing Inability to urinate If you experience chest pain or shortness of breath, please seek emergency care immediately. ISTOP: RX written 03/17/19, dispensed 03/18/19 Hydrocodone/acetaminophen 7.5/ 325mg Quantity 46 tabs for [address] Brandyn Cobb Please call the office at to confirm your post-op appointment for the week following surgery. - Home Medications Comprehensive Discharge Medication List: Ambulatory Orders Ferrous Sulfate [Iron] 325 mg PO DAILY 04/03/19 Folic Acid 1 mg PO DAILY 04/03/19 Hydrocodone/Acetaminophen [Hydrocodone-Acetamin 7.5-325] 1 each PO BID 04/03/19 Levothyroxine [Synthroid -] 150 mcg PO HS 04/03/19 Omeprazole 20 mg PO BID 04/03/19 Aspirin [ASA -] 81 mg PO BID #90 tab.chew 04/11/19 Diazepam [Valium] 2 mg PO TID PRN #10 tablet MDD 3 04/11/19 Docusate Sodium [Colace -] 100 mg PO BID #28 capsule 04/11/19 Hydrocodone/Acetaminophen [Vicodin Es 7.5-300 mg Tablet] 1 each PO Q4H PRN #30 tablet MDD 6 04/11/19 This patient is new to me today: Yes Date on this admission: 04/13/19 Emergency Visit: No Critical Care patient: No - Discharge Referral Referred to [facility] No
[2019-04-13] MEDS ORDERED: oxyCODONE HCL 5 MG TABLET PO ONE (12:23)
--- NOTE | 2019-04-16 13:57 | PATH ---
Surgical Pathology Report Patient Name: DAREN NAJERA Med. Rec. #: [id number] /Age/Gender: 1980 (Age: 39) / F Account: [id number] Location: [facility] Taken: 04/09/2019 Received: 04/09/2019 Reported: 04/16/2019 Physicians: Brandyn Cobb M.D. Specimen(s) Received LEFT FEMORAL HEAD AND HARDWARE Clinical History Left hip dysplasia and osteoarthritis Final Diagnosis LEFT FEMORAL HEAD AND HARDWARE, TOTAL HIP REPLACEMENT: DEGENERATIVE JOINT DISEASE. HIP DYSPLASIA (CLINICAL). HARDWARE, DESCRIBED. Electronically Signed Lina Radford M.D. Gross Description Received in formalin, labeled "left femoral head and hardware" is a 5.5 x 4.5 x 4.5 cm femoral head with metallic hardware measuring 2 cm in length with a diameter of up to 0.3 cm, protruding from the resection margin. The articular surface is granular and shows areas of eburnation. Also received is a separate portion of bone measuring 3.5 x 2.5 x 0.7 cm. Superintendent Pressure tissue is submitted in one cassette. AE/04/11/2019 ebram/04/11/2019
== END 2019-04-13 13:00 | disposition home or self-care (01) | DRG 467 ==
LOC: FM/S 08:55
PROVIDERS: ADMIT Orthopaedic Surgery Orthopaedic Surgery of the Spine; ATTEND Orthopaedic Surgery Orthopaedic Surgery of the Spine
PROC: 0SPB0JZ Removal of Synthetic Substitute from Left Hip Joint, Open Approach (ICD-10-PCS; 2019-04-09)
PROC: 0LNM0ZZ Release Left Upper Leg Tendon, Open Approach (ICD-10-PCS; 2019-04-09)
PROC: 30233N1 Transfusion of Nonautologous Red Blood Cells into Peripheral Vein, Percutaneous Approach (ICD-10-PCS; 2019-04-09)
PROC: 0SRB03A Replacement of Left Hip Joint with Ceramic Synthetic Substitute, Uncemented, Open Approach (ICD-10-PCS; principal; 2019-04-09 15:26)
DX: M16.12 Unilateral primary osteoarthritis, left hip (principal); D62 Acute posthemorrhagic anemia; E03.9 Hypothyroidism, unspecified; Q65.89 Other specified congenital deformities of hip; K21.9 Gastro-esophageal reflux disease without esophagitis
CPT/HCPCS: 36415; 36430; 73502-TC-LT-FY; 80048; 83735; 84703; 85025; 85027; 86850; 86870; 86900; 86901; 86902; 86922; 87389; 88305-TC; 88311-TC; 94760; 97116-GP; 97163-GP; J0131; P9038; P9058

== ENCOUNTER 2021-11-06 11:47 | Emergency (ER) | payer OTHER ==
[2021-11-06] MEDS ORDERED: LIDOCAINE 5% TOPICAL PATCH TP ONE (12:24)
[2021-11-06] MEDS ORDERED: METHOCARBAMOL 500 MG TABLET PO ONE (12:24)
[2021-11-06] MEDS ORDERED: KETOROLAC TROMETHAMINE 60 MG/2 ML VIAL IM ONE (12:24)
[2021-11-06 12:36] VITALS: BP 109/62; PULSE 86; TEMP 99.1; BMI 37.5
[2021-11-06] MEDS ORDERED: KETOROLAC TROMETHAMINE 60 MG/2 ML VIAL ONE (12:37)
[2021-11-06] MEDS ORDERED: METHOCARBAMOL 500 MG TABLET ONE (12:37)
[2021-11-06] MEDS ORDERED: LIDOCAINE 5% TOPICAL PATCH ONE (12:37)
[2021-11-06] MEDS ORDERED: LIDOCAINE PATCH REMOVAL MC SCH (22:00)
== END 2021-11-06 14:03 | disposition home or self-care (01) ==
LOC: FER 11:47
PROC: 3E023GC Introduction of Other Therapeutic Substance into Muscle, Percutaneous Approach (ICD-10-PCS; principal; 2021-11-06)
DX: M54.12 Radiculopathy, cervical region (principal); M62.838 Other muscle spasm
CPT/HCPCS: 72125-TC; 73000-TC-LT-FY; 73030-TC-LT-FY; 81025; 99284-25

== ENCOUNTER 2021-11-07 19:26 | Emergency (ER) | payer OTHER ==
[2021-11-07 19:36] VITALS: BP 126/68; PULSE 68; TEMP 98.5; BMI 37.5
[2021-11-07] MEDS ORDERED: GABAPENTIN 300 MG CAPSULE PO ONE (20:04)
[2021-11-07] MEDS ORDERED: predniSONE 20 MG TABLET (UD) PO ONE (20:05)
[2021-11-07] MEDS ORDERED: predniSONE 20 MG TABLET (UD) ONE (20:14)
[2021-11-07] MEDS ORDERED: GABAPENTIN 300 MG CAPSULE ONE (20:15)
== END 2021-11-07 20:25 | disposition home or self-care (01) ==
LOC: FER 19:26
DX: M25.512 Pain in left shoulder (principal); M50.20 Other cervical disc displacement, unspecified cervical region
CPT/HCPCS: 99283-25

== ENCOUNTER 2023-04-08 18:17 | Emergency (ER) | payer OTHER, BC ==
[2023-04-08 19:00] VITALS: BP 126/73; PULSE 71; RESP 18; TEMP 98.1; BMI 36.0
== END 2023-04-08 20:53 | disposition home or self-care (01) ==
LOC: FER 18:17
DX: S16.1XXA Strain of muscle, fascia and tendon at neck level, initial encounter (principal); M25.561 Pain in right knee; M25.562 Pain in left knee; M25.572 Pain in left ankle and joints of left foot; W01.0XXA Fall on same level from slipping, tripping and stumbling without subsequent striking against object, initial encounter; Y92.89 Other specified places as the place of occurrence of the external cause
CPT/HCPCS: 71046-TC-FY; 72050-TC-FY; 73502-TC-LT-FY; 73560-TC-LT-FY; 73560-TC-RT-FY; 73610-TC-LT-FY; 73630-TC-LT; 99285-25